=== PATIENT | female | born 1955 | race Caucasian/White ===

== ENCOUNTER 2020-11-24 16:33 | Emergency (ER) | payer MEDICARE, SELFPAY ==
--- NOTE | 2020-11-24 17:00 | ED.NAVMDI ---
HPI - Nausea/Vomiting/Diarrhea General Chief complaint: Nausea/Vomiting/Diarrhea Stated complaint: Fatigue/throwing up Source: patient and RN notes reviewed Mode of arrival: ambulatory Limitations: no limitations History of Present Illness MD elicited complaint: nausea, vomiting (Yesterday) and diarrhea (Only once) Onset (ago): day(s) (3) Description of vomiting: bilious Description of diarrhea: watery Associated nausea: Yes Associated abdominal pain: No Location of pain: none Severity: moderate Exacerbating factors: eating Relieving factors: none Associated symptoms: dysuria and fatigue Related Data Allergies Allergy/AdvReac Type Severity Reaction Status Date / Time bacitracin Allergy Unknown Verified 12/27/13 17:24 codeine Allergy Unknown Verified 12/27/13 17:23 polymyxin B Allergy Unknown Verified 12/27/13 17:24 Sulfa (Sulfonamide Allergy Unknown Verified 12/27/13 17:23 Antibiotics) NKFA Allergy Unknown Uncoded 01/10/03 13:02 Review of Systems Review of Systems: All systems reviewed & are unremarkable except as noted in HPI and below Genitourinary: Genitourinary: Reports dysuria PMFSH Surgical History Surgical History (Updated 11/24/20 @ 18:19 by Zane Parra MD) History of hysterectomy with bilateral oophorectomy Family History Family History (Updated 03/16/14 @ 07:13 by DOCTOR UNKNOWN) Father Family history of heart disease in male family member before age 55 Mother Family history of heart disease in male family member before age 55 Social History Social History (Updated 11/24/20 @ 18:20 by Zane Parra MD) Smoking status: Former smoker Alcohol intake: current Alcohol use details: occasional Substance use: never Exam Const: General: healthy appearing, no acute distress and alert Nutritional Appearance: well nourished and thin Orientation/consciousness: patient oriented x3 HENMT: Head: normal to inspection Ears: external ears normal Eyes: Cornea: corneas normal Pupils: Equal, round and reactive pupils present EOM: EOMs intact bilaterally Neck: Neck: normal visual inspection Resp: Effort & Inspection: normal respiratory effort Auscultation: clear to auscultation bilaterally Cardio: Rate: regular rate Rhythm: regular rhythm GI: GI Palp: Yes Soft to palpation, No Tenderness to palpation present (GI) and No Rebound tenderness present Auscultation: normal bowel sounds Back/Spine/Pelvis: Cervical Spine: cervical ROM normal Thoracic/Lumbar Spine: thoraco-lumbar ROM normal Skin: General skin exam: normal color Rashes: no rashes Neuro: General: patient oriented x3, moves all extremities and no focal motor deficits Speech: normal speech Gait exam (Neuro): Normal gait present Extrem: General: normal to inspection and no clubbing, cyanosis or edema Psych: Appearance: grossly normal and well kempt Mental Status: mental status grossly normal Affect: normal affect Attitude: cooperative Thought content: Yes Normal thought content present Course Course Emergency Course: patient feels much better after 1 L of normal saline and 4 mg Zofran. Vital Signs Vital signs: Vital Signs Temperature 39.4 C H 11/24/20 17:06 Pulse Rate 115 H 11/24/20 17:06 Respiratory Rate 16 11/24/20 17:06 Blood Pressure 133/73 11/24/20 17:06 Pulse Oximetry 99 11/24/20 17:06 Temperature 38.3 C H 11/24/20 18:46 Pulse Rate 100 11/24/20 18:46 Respiratory Rate 15 11/24/20 18:46 Blood Pressure 126/59 L 11/24/20 18:46 Pulse Oximetry 95 11/24/20 18:46 MDM - Nausea/Vomiting/Diarrhea Lab Data Attestation: I reviewed the patient's lab results. Result diagrams: 11/24/20 17:16 11/24/20 17:16 Labs: Lab Results 11/24/20 11/24/20 11/24/20 Range/Units 17:16 17:16 17:16 WBC 3.8 L (4.8-10.8) K/mm3 RBC 4.88 (4.20-5.40) M/mm3 Hgb 15.0 H (11.7-13.8) g/dL Hct 42.3 H (35.0-42.0) % MCV 86.7 (78.0-102.0)
[2020-11-24 17:06] VITALS: BP 133/73; PULSE 115; RESP 16; TEMP 39.4; O2SAT 99
[2020-11-24] MEDS: SODIUM CHLORIDE 0.9% IV 1,000 ML 999 ML IV CONT (17:15)
[2020-11-24] MEDS: ONDANSETRON INJ 4 MG/2 ML VIAL IV PUSH (17:15)
[2020-11-24 17:22] LABS: Add Urine Microscopic? YES; Appearance Urine Sl Cloudy (Clear); Bilirubin Urine 1+ (Negative); Blood Urine 1+ (Negative); Color Urine Yellow (Yellow); Glucose Urine UA Negative (Negative); Ketones Urine 1+ (Negative); Leukocyte Esterase Ur Negative LEU/UL (Negative); Nitrate Urine Negative (Negative); Protein Urine 2+ (Negative); Specific Grav Ur >= 1.030 (1.010-1.020); Urobilinogen Urine 0.2 mg/dL (0.2-1.0); pH Urine 5.5 (5.0-8.0)
[2020-11-24 17:24] LABS: Hematocrit 42.3 % (35.0-42.0); Immature Platelet Fraction Pct 2.5 % (1.0-7.0); Mean Corpuscular HGB Conc 35.5 g/dL (32.0-36.0); Mean Corpuscular Hemoglobin 30.7 pg (27.0-31.0); Mean Corpuscular Volume 86.7 fL (78.0-102.0); Mean Platelet Volume 10.2 fl (9.2-11.8); Platelet Count Result 96 K/mm3 (150-420); Red Blood Count 4.88 M/mm3 (4.20-5.40); Red Cell Distribution Width 12.2 % (11.6-14.4); White Blood Count 3.8 K/mm3 (4.8-10.8)
[2020-11-24 17:28] LABS: Bacteria Urine 3+ /hpf; Mucus Urine Heavy /lpf; Squamous Epithelial Cell Urine Moderate /hpf (Few)
[2020-11-24 17:36] LABS: Alanine Aminotransferase 52 U/L (14-59); Albumin Level 3.6 g/dL (3.4-5.0); Alkaline Phosphatase 74 U/L (46-116); Anion Gap 10 mmol/L (8-16); Aspartate Amino Transferase 67 U/L (15-37); Bilirubin,Total 0.6 mg/dL (0.00-1.00); Blood Urea Nitrogen 25 mg/dL (7-18); Calcium 8.8 mg/dL (8.5-10.1); Carbon Dioxide 24 mmol/L (21-32); Chloride 98 mmol/L (98-108); Estimated CRCL calculation 42 ml/min; Estimated Glomerular Filt Rate 48; Glucose 132 mg/dL (70-99); Osmolality Calculated 280 mOsm/kg (285-295); Potassium 3.8 mmol/L (3.5-5.1); Sodium 132 mmol/L (136-145); Total Protein 7.4 g/dL (6.4-8.2)
[2020-11-24 17:37] LABS: CRP 4.3 mg/dL (0.0-0.9)
[2020-11-24 17:43] LABS: Band Neutrophils Percent 10 % (0-6); Basophils Absolute Manual 0.03 K/mm3 (0-0.1); Basophils Percent Manual 1 % (0-1); Eosinophils Percent Manual 0 % (1-6); Lymphocytes Absolute Manual 0.38 K/mm3 (1.1-4.5); Lymphocytes Percent Manual 10 % (18-44); Monocytes Absolute Manual 0.19 K/mm3 (0.1-0.90); Monocytes Percent Manual 5 % (3-9); Neutrophils Absolute Manual 3.19 K/mm3 (1.7-7.2); Neutrophils Percent Manual 74 % (46-73); Platelet Estimate Decreased (Adequate); Total Cells Counted 100
[2020-11-24 18:46] VITALS: BP 126/59; PULSE 100; RESP 15; TEMP 38.3; O2SAT 95
== END 2020-11-24 19:01 | disposition home or self-care (01) ==
PROVIDERS: Emergency Provider Emergency Medicine
DX: N39.0 Urinary tract infection, site not specified (principal); E86.0 Dehydration
CPT/HCPCS: 36415; 80053; 81001; 85025; 85055; 86140; 96361; 96365; 96375; 99283; 99284; J0696; J2405; J7030

== ENCOUNTER 2022-01-26 08:51 | Emergency (ER) | payer MEDICARE, SELFPAY ==
[2022-01-26] VITALS (7 sets, daily range): BP systolic 110–143; BP diastolic 60–75; PULSE 81–111; RESP 18–20; TEMP 37.6–37.8; O2SAT 93–98
--- NOTE | ~2022-01-26 | CT_ITS ---
EXAMINATION: CT abdomen pelvis wo con DATE: 01/26/2022 10:02 INDICATION: Fever, nausea and vomiting TECHNIQUE: Computed tomography (CT) of the abdomen and pelvis was performed without intravenous contr ast. Automated exposure control and iterative reconstruction technique were employed. The dose-length product was 356.80 mGy-cm. COMPARISON: None FINDINGS: Normal minimal bibasilar atelectasis. Heart size is normal. Small amount of atherosclerotic coronary artery calcific lesion. No pericardial or pleural effusion. Liver, gallbladder, spleen, pancreas, keith ateral adrenal glands and kidneys are normal. No urolithiasis or hydronephrosis. Nondilated fluid-rosanna led loops of small bowel which could be seen with gastroenteritis moderate to large amount of stool t hroughout the colon. A few scattered colonic diverticula without adjacent inflammatory change to sugg est diverticulitis. Mild appendix. Bladder is normal. The uterus is not identified and has likely bee n surgically resected. No free intraperitoneal gas or fluid. No pathologically enlarged abdominal or pelvic lymphadenopathy. Mild lumbar dextrocurvature with severe spondylosis. Moderate lower thoracic spondylosis. IMPRESSION: 1. A few fluid-filled but nondilated loops of small bowel which could be seen with ileus or gastroent eritis. No other acute intra-abdominal/pelvic process. Reviewed, dictated and finalized at location A. IMPRESSION: 1. A few fluid-filled but nondilated loops of small bowel which could be seen w ith ileus or gastroenteritis. No other acute intra-abdominal/pelvic process.
[2022-01-26] MEDS: PANTOPRAZOLE SODIUM IV 40 MG VIAL IV PUSH (09:29)
[2022-01-26] MEDS: SODIUM CHLORIDE 0.9% IV 1,000 ML 999 ML IV CONT (09:29)
[2022-01-26] MEDS: ONDANSETRON INJ 4 MG/2 ML VIAL IV PUSH (09:29)
[2022-01-26] MEDS: ACETAMINOPHEN 325 MG TABLET 650 MG PO (09:30)
[2022-01-26 09:33] LABS: Bilirubin Urine Negative (Negative); Color Urine Light Yellow (Yellow); Glucose Urine UA Negative (Negative); Ketones Urine Negative (Negative); Leukocyte Esterase Ur 3+ LEU/UL (Negative); Nitrate Urine Negative (Negative); Protein Urine Negative (Negative); Urobilinogen Urine 0.2 mg/dL (0.2-1.0); pH Urine 7.5 (5.0-8.0)
[2022-01-26 09:42] LABS: Add Urine Microscopic? YES; Amorphous Sediment Urine Moderate; Appearance Urine Slightly Cloudy (Clear); Blood Urine Trace-lysed (Negative); RBC Urine 0-2 /hpf (0-2); Squamous Epithelial Cell Urine Many /hpf (Few)
[2022-01-26 09:43] LABS: Bacteria Urine None seen /hpf
[2022-01-26 10:04] LABS: Influenza A QL RT-PCR Negative (Negative); Influenza B QL RT-PCR Negative (Negative); SARS-CoV-2 RNA PCR Negative (Negative)
[2022-01-26 10:11] LABS: Basophils Absolute Auto 0.02 K/mm3 (0.00-0.10); Basophils Percent Auto 0.3 % (0.0-1.0); Eosinophils Absolute Auto 0.01 K/mm3 (0.02-0.50); Eosinophils Percent Auto 0.2 % (1.0-6.0); Hematocrit 39.8 % (35.0-42.0); Hemoglobin 13.8 g/dL (11.7-13.8); Immature Granulocyte Absolute 0.01 K/mm3 (0.00-0.00); Immature Granulocyte Percent A 0.2 % (0.0-0.0); Lymphocytes Absolute Auto 0.17 K/mm3 (1.10-4.50); Lymphocytes Percent Auto 2.8 % (18.0-42.0); Mean Corpuscular HGB Conc 34.7 g/dL (32.0-36.0); Mean Corpuscular Hemoglobin 31.3 pg (27.0-31.0); Mean Corpuscular Volume 90.2 fL (78.0-102.0); Mean Platelet Volume 9.6 fl (9.2-11.8); Monocytes Absolute Auto 0.29 K/mm3 (0.10-0.90); Monocytes Percent Auto 4.7 % (2.0-11.0); Neutrophils Absolute Auto 5.6 K/mm3 (1.7-7.2); Neutrophils Percent Auto 91.8 % (50.0-70.0); Platelet Count Result 126 K/mm3 (150-420); Red Blood Count 4.41 M/mm3 (4.20-5.40); Red Cell Distribution Width 12.6 % (11.6-14.4); White Blood Count 6.1 K/mm3 (4.8-10.8)
[2022-01-26 10:25] LABS: Alanine Aminotransferase 22 U/L (14-59); Albumin Level 3.4 g/dL (3.4-5.0); Alkaline Phosphatase 79 U/L (46-116); Anion Gap 8 mmol/L (8-16); Aspartate Amino Transferase 20 U/L (15-37); Bilirubin,Total 0.5 mg/dL (0.00-1.00); Blood Urea Nitrogen 22 mg/dL (7-18); Calcium 8.3 mg/dL (8.5-10.1); Carbon Dioxide 25 mmol/L (21-32); Chloride 106 mmol/L (98-108); Estimated CRCL calculation 45 ml/min; Estimated Glomerular Filt Rate 50; Glucose 123 mg/dL (70-99); Lipase 103 U/L (73-393); Osmolality Calculated 292 mOsm/kg (285-295); Potassium 3.8 mmol/L (3.5-5.1); Sodium 139 mmol/L (136-145); Total Protein 6.7 g/dL (6.4-8.2)
--- NOTE | 2022-01-26 10:56 | ED.NAVMDI ---
HPI - Nausea/Vomiting/Diarrhea General Chief complaint: Nausea/Vomiting/Diarrhea Stated complaint: vomiting, nausea, body aches Time Seen by Provider: 01/26/22 08:55 Source: patient and RN notes reviewed Mode of arrival: ambulatory Limitations: no limitations History of Present Illness HPI Narrative: nausea, vomiting and bodyaches. MD elicited complaint: nausea and vomiting Description of vomiting: food contents Description of diarrhea: semi-solid Associated nausea: Yes Associated abdominal pain: Yes Location of pain: diffuse Pain consistency: constant and colicky Pain scale (0-10): 4 Quality: cramping and dull Exacerbating factors: none Relieving factors: none Associated symptoms: myalgias and nausea/vomiting Related Data Allergies Allergy/AdvReac Type Severity Reaction Status Date / Time bacitracin Allergy Unknown Unknown Verified 01/26/22 09:18 codeine Allergy Unknown Gastrointestinal Verified 01/26/22 09:18 Upset polymyxin B Allergy Unknown Unknown Verified 01/26/22 09:18 Sulfa (Sulfonamide Allergy Unknown Gastrointestinal Verified 01/26/22 09:18 Antibiotics) Upset Review of Systems Review of Systems: All systems reviewed & are unremarkable except as noted in HPI and below Constitutional: Constitutional: Reports no additional constitutional complaints Eyes: Eyes: Reports no additional eye complaints ENT: Reports system reviewed and no additional complaints, except as documented Cardiovascular: Cardiovascular: Reports no additional cardiovascular complaints Respiratory: Respiratory: Reports no additional respiratory complaints Gastrointestinal: Gastrointestinal: Reports abdominal pain, Reports diarrhea, Reports nausea and Reports vomiting Genitourinary: Genitourinary: Reports no additional female genitourinary complaints Musculoskeletal: Musculoskeletal: Reports no additional musculoskeletal complaints Integumentary/Breasts: Skin/Breast: Reports system reviewed and no additional complaints, except as docu Neurologic: Reports system reviewed and no additional complaints, except as documented Psychiatric: Psychiatric: Reports no additional psychiatric complaints Endocrine: Endocrine: Reports no additional endocrine complaints Hematologic/Lymphatic: Hematologic/Lymphatic: Reports no additional hematologic/lymphatic complaints Allergic/Immunologic: Allergic/Immunologic: Reports no additional allergic/immunologic complaints [facility] Past Medical History Medical History Gastroenteritis Surgical History Surgical History History of hysterectomy with bilateral oophorectomy Family History Family History Father Family history of heart disease in male family member before age 55 Mother Family history of heart disease in male family member before age 55 Social History Social History Smoking status: Former smoker Alcohol intake: current Alcohol use details: occasional Substance use: never Exam Const: General: no acute distress Nutritional Appearance: well nourished Orientation/consciousness: patient oriented x3 Limitations: no limitations HENMT: Head: normal to inspection Ears: external ears normal, TM's normal bilaterally and EAC's normal General nose exam: Normal external nose present and Normal nares present Face and sinus: normal facial exam and sinuses nontender Mouth: Yes Normal oral and palatal mucosa present and Yes moist mucous membranes Teeth and gingiva: dentition normal Throat: posterior oropharynx normal Eyes: Conjunctivae: conjunctivae normal Pupils: Equal, round and reactive pupils present EOM: EOMs intact bilaterally Neck: Neck: normal visual inspection, no lymphadenopathy and no meningeal signs Chest: Chest palpation & inspection: normal ins
== END 2022-01-26 12:30 | disposition home or self-care (01) ==
PROVIDERS: Emergency Provider Emergency Medicine
DX: K52.9 Noninfective gastroenteritis and colitis, unspecified (principal); N39.0 Urinary tract infection, site not specified; Z20.822 Contact with and (suspected) exposure to COVID-19; Z87.891 Personal history of nicotine dependence
CPT/HCPCS: 74176; 80053; 81001; 83690; 85025; 87081; 87086; 87502; 87880; 96361; 96365; 96375; 99284; A9270; C9113; C9803; J0696; J2405; J7030; U0003; U0005